=== PATIENT | female | born 1985 | race Caucasian/White ===

== ENCOUNTER 2016-08-27 06:41 | Emergency (ER) | payer MEDICAID ==
[~2016-08-27] VITALS: Ht 160 cm; Wt 68.0 kg
[~2016-08-27 06:41] MED LIST: ACET1TAB40 PO; ACET500C5 PO; BACTDS PO; BUTA1CAP38 PO; CEPH-443 PO; D-ME118S6 PO; FIORICET PO; HYDR-3498 PO; IBUP-1542 PO; IBUP800T25 PO; MECL25TA2 PO
[2016-08-27 06:44] VITALS: Ht 160 cm; Wt 68.0 kg
[2016-08-27] MEDS ORDERED: SOD CHLORIDE 0.9% 1,000 ML IV STA (07:33)
[2016-08-27 07:55] LABS: URINE BLOOD (Dip) POC Trace-intact (NEGATIVE)
[2016-08-27] MEDS ORDERED: DIPHENHYDRAMINE 50 MG INJ IV ONE (08:00)
[2016-08-27] MEDS ORDERED: METOCLOPRAMIDE 10 MG INJ IV ONE (08:00)
[2016-08-27 08:37] LABS: ADD SCAN DIFF NO
[2016-08-27 08:45] LABS: BASOPHIL # 0.1 10^3/ul (0.0-0.1); BASOPHILS % 0.5 % (0.0-2.0); EOSINOPHILS # 0.4 10^3/ul (0.0-0.5); EOSINOPHILS % 3.2 % (0.0-7.0); HEMATOCRIT 41.8 % (37.0-47.0); HEMOGLOBIN 13.2 g/dl (12.0-16.0); LYMPHOCYTES # 3.4 10^3/ul (0.8-2.9); LYMPHOCYTES % 26.5 % (15.0-51.0); MEAN CORPUSCULAR HEMOGLOBIN 28.9 pg (29.0-33.0); MEAN CORPUSCULAR HGB CONC 31.6 g/dl (32.0-37.0); MEAN CORPUSCULAR VOLUME 91.7 fl (82.0-101.0); MONOCYTE # 1.3 10^3/ul (0.3-0.9); MONOCYTES % 10.1 % (0.0-11.0); NEUTROPHIL # 7.6 10^3/ul (1.6-7.5); NEUTROPHILS % 59.4 % (39.0-77.0); PLATELET COUNT 467 10^3/UL (140-415); RED BLOOD COUNT 4.56 10^6/ul (4.20-5.40); RED CELL DISTRIBUTION WIDTH 15.1 % (11.5-14.5); WHITE BLOOD COUNT 12.7 10^3/ul (4.8-10.8)
[2016-08-27 08:56] LABS: ALBUMIN 4.2 g/dl (3.3-4.9)
[2016-08-27 08:59] LABS: ALBUMIN/GLOBULIN RATIO 1.35; BILIRUBIN,INDIRECT 0.1 mg/dl (0-1.1); BILIRUBIN,TOTAL 0.1 mg/dl (0.2-1.3); CREATININE 0.51 mg/dl (0.44-1.00); TOTAL PROTEIN 7.3 g/dl (6.1-8.1)
[2016-08-27 09:00] LABS: CALCIUM 9.1 mg/dl (8.4-10.2)
[2016-08-27] MEDS ORDERED: FIORICET PO (09:31)
[2016-08-27 09:39] VITALS: BP 117/72; PULSE 73; RESP 18; TEMP 97.8
--- NOTE | 2016-08-27 12:02 | ERD ---
ER Documentation Chief Complaint Date/Time DATE: 08/27/16 TIME: 11:55 Chief Complaint headcahe , vomiting x 3 months HPI 30-year-old female patient with a past medical history of a chronic headache presents to the ED complaining of the same kind of headache that she is experiencing since last year. Reports that she feels slightly dizzy. States that she has been vomiting intermittently for the last 3 months. States that loud noises makes her headache worse. States that she has not followed up with a neurologist. States that her last menses was on July 30, 2016. Denies any blurred vision, diplopia, photophobia, chest pain, shortness of breath, abdominal pain. Denies any head trauma or neck trauma. Denies any loss of consciousness. Denies any fever, neck stiffness, seizures. ROS All systems reviewed and are negative except as per history of present illness. Medications Home Meds Active Scripts Acetamin/Butalbital/Caffeine* (Fioricet*) [id number] Tab, 1 TAB PO Q6H Y for PAIN, #30 TAB Prov:LIZABETH GARCIA PA-C 08/27/16 Acetamin/Butalbital/Caffeine* (Fioricet*) [id number] Tab, 1 TAB PO Q6H Y for PAIN, #30 TAB Prov:LIZABETH GARCIA PA-C 04/13/16 Btfslwnupd-Akepechrjcore-Mdrorkzm* (Fioricet*) 50-300-40 Mg Capsule, 1 CAP PO Q4H, #30 CAP Prov:LIZABETH GARCIA PA-C 12/10/15 Ibuprofen* (Motrin*) 600 Mg Tab, 600 MG PO Q6, #30 TAB Prov:HEMANT ROMERO 10/03/15 Sulfamethoxazole-Trimethoprim* (Bactrim* DS) 800-160 Mg Tab, 1 TAB PO BID for 7 Days, TAB Prov:HEMANT ROMERO 10/03/15 Cephalexin* (Keflex*) 500 Mg Capsule, 500 MG PO QID for 7 Days, CAP Prov:HEMANT ROMERO 10/03/15 Meclizine Hcl* (Antivert*) 25 Mg Tablet, 25 MG PO Q6H Y for NAUSEA, #20 TAB Prov:GALINDO MIRANDA LOAN TELLER 07/06/15 Ibuprofen* (Motrin*) 800 Mg Tab, 800 MG PO Q6H Y for PAIN AND OR ELEVATED TEMP, #30 TAB Prov:GALINDO MIRANDA. LOAN TELLER 07/06/15 Dextromethorphan Hb-Promethazine Hcl (Promethazine DM Syrup) 180 Ml Syrup, 5 ML PO Q6 Y for COUGH for 5 Days, ML Prov:HEMANT ROMERO C 04/04/15 Ibuprofen* (Motrin*) 600 Mg Tab, 600 MG PO Q6, #30 TAB Prov:GARCIA ROMERONA C 04/04/15 Acetaminophen* (Tylophen*) 500 Mg Capsule, 1 CAP PO Q6H Y for PAIN AND OR ELEVATED TEMP, #20 CAP Prov:VLAD BEJARANO 01/31/15 Hydrocodone Bit-Acetaminophen* ([place]*) 5-325 Mg Tab, 1 TAB PO Q6 Y for PAIN, # 5 TAB Prov:VLAD BEJARANO 01/31/15 Reported Medications Acetaminophen-Codeine* (Acetaminophen-Cod #3*) 300-30 Mg Tab, 1 TAB PO Q6 Y for PAIN, TAB 03/17/14 Allergies Allergies: Coded Allergies: lactose (Verified Allergy, Unknown, 12/10/15) PMhx/Soc History of Surgery: Yes ( X3) Anesthesia Reaction: No Hx Neurological Disorder: No Hx Respiratory Disorders: No Hx Cardiac Disorders: No Hx Psychiatric Problems: No Hx Miscellaneous Medical Probl: No Hx Alcohol Use: No Hx Substance Use: No Hx Tobacco Use: No Smoking Status: Never smoker Physical Exam Vitals Vital Signs Date Time Temp Pulse Resp B/P Pulse Ox O2 Delivery O2 Flow Rate FiO2 08/27/16 09:39 97.8 73 18 117/72 99 Room Air Physical Exam Const: Roi-sqq-mmtwmzawj, well-nourished. In no acute distress. Head: Atraumatic, normocephalic Eyes: Normal Conjunctiva without injection. No purulent discharge. PERRLA. EOMI ENT: Normal external ear. Ear canal without erythema. Tympanic membrane pearly orosco without effusion or bulging. Nasal canal clear with normal turbinates. Moist oropharynx without tonsillar exudates. Non-erythematous pharynx. Uvula midline. No drooling. No trismus. Neck: No cervical midline tenderness. Full range of motion. No meningismus. No cervical lymphadenopathy. No JVD. Resp: Clear to auscultation bilaterally. No wheezing, rhonchi, rales, or crackles. No accessory muscle use. No retractions. Cardio: Regular rate and rhythm. No murmurs, rubs or gallops. Abd: Soft, non tender, non distended. Normal bowel sounds. No palpable masses. No rebound tenderness. No guarding. Negative McBurney's Point. Negative Thakkar's Sign. Skin: Normal skin turgor. No petechiae or rashes Back: No midline tenderness. No CVA tenderness. Ext: No cyanosis, or edema. Distal pulses intact bilaterally. Neur: Awake and alert. Normal gait. Normal coordination. Cranial Nerves II- VII intact. Normal finger to nose. Muscle strength 5/5. Sensation intact. Psych: Normal Mood and Affect Result Diagram: 08/27/16 0750 08/27/16 0750 Results 24 hrs Laboratory Tests Test 08/27/16 07:50 08/27/16 07:57 White Blood Count 12.710^3/ul Red Blood Count 4.5610^6/ul Hemoglobin 13.2g/dl Hematocrit 41.8% Mean Corpuscular Volume 91.7fl Mean Corpuscular Hemoglobin 28.9pg Mean Corpuscular Hemoglobin Concent 31.6g/dl Red Cell Distribution Width 15.1% Platelet Count 39202^3/UL Mean Platelet Volume 10.0fl Neutrophils % 59.4% Lymphocytes % 26.5% Monocytes % 10.1% Eosinophils % 3.2% Basophils % 0.5% Nucleated Red Blood Cells % 0.0/100WBC Neutrophils # 7.610^3/ul Lymphocytes # 3.410^3/ul Monocytes # 1.310^3/ul Eosinophils # 0.410^3/ul Basophils # 0.110^3/ul Nucleated Red Blood Cells # 0.010^3/ul Sodium Level 142mmol/L Potassium Level 4.0mmol/L Chloride Level 105mmol/L Carbon Dioxide Level 26mmol/L Anion Gap 15 Blood Urea Nitrogen 10mg/dl Creatinine 0.51mg/dl Glucose Level 97mg/dl Calcium Level 9.1mg/dl Total Bilirubin 0.1mg/dl Direct Bilirubin 0.00mg/dl Indirect Bilirubin 0.1mg/dl Aspartate Amino Transf (AST/SGOT) 20IU/L Alanine Aminotransferase (ALT/SGPT) 34IU/L Alkaline Phosphatase 63IU/L Total Protein 7.3g/dl Albumin 4.2g/dl Globulin 3.10g/dl Albumin/Globulin Ratio 1.35 Bedside Urine pH (LAB) 5.5 Bedside Urine Protein (LAB) Negative Bedside Urine Glucose (UA) Negative Bedside Urine Ketones (LAB) Negative Bedside Urine Blood Trace-intact Bedside Urine Nitrite (LAB) Negative Bedside Urine Leukocyte Esterase (L Negative Current Medications Medications (Trade) Dose Ordered Sig/Carol Route PRN Reason Start Time Stop Time Status Last Admin Dose Admin Sodium Chloride (NS) 1,000 ml @ 1,000 mls/hr Q1H STAT IV 08/27/16 07:33 08/27/16 08:32 DC 08/27/16 08:10 Metoclopramide HCl (Reglan) 10 mg ONCE ONCE IV 08/27/16 08:00 08/27/16 08:01 DC 08/27/16 08:11 Diphenhydramine HCl (Benadryl) 25 mg ONCE ONCE IV 08/27/16 08:00 08/27/16 08:01 DC 08/27/16 08:11 Procedures/MDM This is a 30-year-old female patient with a past medical history of chronic headache presents to the ED complaining of the same headache and vomiting that started adamantly 3 months ago. Patient reports at this time she feels dizzy. Therefore EKG was ordered to further evaluate patient. Patient was further worked up with CBC, CMP, lipase, UA, urine . Patient already had a CT done in November 2015 which was negative for any acute abnormalities. Patient's pain and symptoms have improved after treatment with 1 L normal saline, 10 mg IV Reglan, 25 mg IV Benadryl. CBC: No leukocytosis. No e/o of systemic infection. No e/o anemia. CMP: No e/o severe acidosis, alkalosis, renal failure, diabetic ketoacidosis, liver disease Lipase within normal limits. Urine: No leukocyte esterase, no nitrites, no hematuria. Urine : negative EKG reviewed and interpreted by Dr. Paz Rate/Rhythm: [71 bpm, Normal Sinus Rhythm] No ectopy, no ST elevations, normal axis. QRS, ST, T-waves: [No changes consistent w/ acute ischemia] Impression: [No evidence of ischemia or arrhythmia] Low suspicion for acute myocardial infarction, pneumothorax, pneumonia, cardiac tamponade, pulmonary embolism, AAA, aortic dissection, Boerhaave's syndrome, cardiac dysrhythmias,meningitis, intracranial bleed, seizure, stroke, TIA or other emergent conditions. Patient likely has migraine headaches. Low suspicion for intracranial bleed, subarachnoid hemorrhage, meningitis, TIA, stroke, seizures, subdural hematoma, meningitis, epidural hematoma, or other emergent conditions. Discharge medications: Fioricet Follow up with primary care physician in 1-2 days for referral to neurologist for a MRI. Instructed patient to return to the ED sooner for any worsening symptoms. Patient's questions were answered. Patient understood and agreed with discharge plan. Patient discharged stable. Departure Diagnosis: Primary Impression: Headache Headache type: unspecified Headache chronicity pattern: unspecified pattern Intractability: not intractable Qualified Code: R51 - Nonintractable headache, unspecified chronicity pattern, unspecified headache type Condition: Stable Patient Instructions: Headache, Unspecified Referrals: JHON OH MD,MATY CHAND,CABRERA BILL MD, MD,BRITTNEY MURO,CHARLETTE SOTO,ARTUR OLIVAS,JOSHUA MULTANI MD, WEI MRELASHVILI, DAVIT NAYYAR,BENNETT LARSON,CLAUDIA SANTORO M.D., DAVID SHETH, KEVIN N MD TILWALLI, SHILPA D VERPUKHOVSKIY, YURIY MD VESPA,ALETHA SMITH MD, MD,ANASTACIO Rosales MD [facility] YOU HAVE RECEIVED A MEDICAL SCREENING EXAM AND THE RESULTS INDICATE THAT YOU DO NOT HAVE A CONDITION THAT REQUIRES URGENT TREATMENT IN THE EMERGENCY DEPARTMENT. FURTHER EVALUATION AND TREATMENT OF YOUR CONDITION CAN WAIT UNTIL YOU ARE SEEN IN YOUR DOCTORS OFFICE WITHIN THE NEXT 1-2 DAYS. IT IS YOUR RESPONSIBILITY TO MAKE AN APPOINTMENT FOR FOLOW-UP CARE. IF YOU HAVE A PRIMARY DOCTOR --you should call your primary doctor and schedule an appointment IF YOU DO NOT HAVE A PRIMARY DOCTOR YOU CAN CALL OUR PHYSICIAN REFERRAL HOTLINE AT IF YOU CAN NOT AFFORD TO SEE A PHYSICIAN YOU CAN CHOSE FROM THE FOLLOWING [facility] [address] [facility] [address] [facility] [address] [facility] [address] [facility] [address] [facility]. [facility] [address] [facility]. [facility] YOU HAVE RECEIVED A MEDICAL SCREENING EXAM AND THE RESULTS INDICATE THAT YOU DO NOT HAVE A CONDITION THAT REQUIRES URGENT TREATMENT IN THE EMERGENCY DEPARTMENT. FURTHER EVALUATION AND TREATMENT OF YOUR CONDITION CAN WAIT UNTIL YOU ARE SEEN IN YOUR DOCTORS OFFICE WITHIN THE NEXT 1-2 DAYS. IT IS YOUR RESPONSIBILITY TO MAKE AN APPOINTMENT FOR FOLOW-UP CARE. IF YOU HAVE A PRIMARY DOCTOR --you should call your primary doctor and schedule and appointment IF YOU DO NOT HAVE A PRIMARY DOCTOR YOU CAN CALL OUR PHYSICIAN REFERRAL HOTLINE AT . IF YOU CAN NOT AFFORD TO SEE A PHYSICIAN YOU CAN CHOSE FROM THE FOLLOWING [facility]: [facility] [address] [place] [address] [facility] [address] [place], [place] [id number] [place] [address] [address] [place] [address] [facility] URGENT CARE/SPECIALTIES Additional Instructions: Llame al doctor MAANA y nichelle radha LOGAN PARA DENTRO DE 1-2 JOHNSON para radha referencia a un neurlogo.Dgale a la secretaria que nosotros le instruimos hacer esta logan.Avise o llame si hand condicin se empeora antes de la logan. Regresa aqui si peor o no mejor. LIZABETH GARCIA PA-C August 27, 2016 12:02 LIZABETH GARCIA PA-C August 27, 2016 12:02
== END 2016-08-27 10:05 | disposition home or self-care (01) ==
LOC: FTE 06:41
DX: R51 Headache (principal); R42 Dizziness and giddiness
CPT/HCPCS: 80053; 81003; 85025; 93005; J1200; J2765; J7030; 36415; 96374; 96375

== ENCOUNTER 2017-07-07 18:03 | Emergency (ER) | END 2017-07-08 01:50 | disposition home or self-care (01) ==

== ENCOUNTER 2017-10-07 18:01 | Emergency (ER) | END 2017-10-07 21:07 | disposition home or self-care (01) ==

== ENCOUNTER 2017-11-03 17:34 | Emergency (ER) | END 2017-11-03 19:50 | disposition home or self-care (01) ==

== ENCOUNTER 2018-06-03 09:52 | Emergency (ER) | payer MEDICAID ==
[~2018-06-03] VITALS: Ht 157.5 cm; Wt 64.2 kg
[~2018-06-03 09:52] MED LIST changes: +ACET325T33 PO; +FAMO-96 PO; -IBUP800T25 PO; +IBUP800T48 PO; +NAPR-985 PO; +OMEP40CA6 PO; +ONDA4TAB8 PO; +RANI150T35 PO
[2018-06-03 09:56] VITALS: BP 117/64; PULSE 82; RESP 18; Ht 157.5 cm; Wt 64.2 kg
[2018-06-03] MEDS ORDERED: IBUP-1542 PO (10:22)
[2018-06-03] MEDS ORDERED: D-ME473S2 PO (10:22)
--- NOTE | 2018-06-03 10:25 | ERD ---
ER Documentation Chief Complaint Chief Complaint cough/congestion x 1 week; ear pain HPI 32-year-old female presents with cough, congestion, sore throat, ear pain for last week. She is here with her child with similar symptoms. No history of measured fevers, chest pain, vomiting or abdominal pain, urinary complaints. ROS All systems reviewed and are negative except as per history of present illness. Medications Home Meds Active Scripts Dextromethorphan Hb-Promethazine Hcl* (Promethazine DM* Syrup) 473 Ml Syrup, 5 ML PO Q6 PRN for COUGH for 4 Days, ML Prov:BUDDY JERONIMO MD 06/03/18 Ibuprofen* (Motrin*) 600 Mg Tab, 600 MG PO Q6, #30 TAB Prov:BUDDY JERONIMO MD 06/03/18 Acetaminophen* (Tylenol*) 325 Mg Tablet, 2 TAB PO Q6 PRN for PAIN AND OR ELEVATED TEMP, #20 TAB Prov:CONNIE VERAS MD 11/03/17 Omeprazole* (Omeprazole*) 40 Mg Capsule.dr, 40 MG PO DAILY, #30 CAP Prov:CONNIE VERAS MD 11/03/17 Ranitidine Hcl* (Zantac*) 150 Mg Tablet, 150 MG PO BID PRN for EPIGASTRIC PAIN, #30 TAB Prov:CONNIE VERAS MD 11/03/17 Ondansetron Hcl* (Zofran*) 4 Mg Tablet, 4 MG PO Q6H for NAUSEA AND/OR VOMITING, #30 TAB Prov:HEMANT ROMERO 10/07/17 Famotidine* (Pepcid*) 20 Mg Tablet, 20 MG PO BID for 7 Days, TAB Prov:HEMANT ROMERO 10/07/17 Naproxen* (Naprosyn*) 500 Mg Tablet, 500 MG PO BID PRN for PAIN AND/OR INFLAMMATION, #20 TAB Prov:YUMIKO DUPONT PA-C 07/08/17 Acetamin/Butalbital/Caffeine* (Fioricet*) [id number] Tab, 1 TAB PO Q6H PRN for PAIN, #30 TAB Prov:LIZABETH GARCIA PA-C 08/27/16 Acetamin/Butalbital/Caffeine* (Fioricet*) [id number] Tab, 1 TAB PO Q6H PRN for PAIN, #30 TAB Prov:LIZABETH GARCIA PA-C 04/13/16 Rgqmwamaih-Qesoogyaqlara-Dvdkqvwo* (Fioricet*) 50-300-40 Mg Capsule, 1 CAP PO Q4H, #30 CAP Prov:LIZABETH GARCIA PA-C 12/10/15 Ibuprofen* (Motrin*) 600 Mg Tab, 600 MG PO Q6, #30 TAB Prov:HEMANT ROMERO 10/03/15 Sulfamethoxazole-Trimethoprim* (Bactrim* DS) 800-160 Mg Tab, 1 TAB PO BID for 7 Days, TAB Prov:HEMANT ROMERO 10/03/15 Cephalexin* (Keflex*) 500 Mg Capsule, 500 MG PO QID for 7 Days, CAP Prov:HEMANT ROMERO 10/03/15 Meclizine Hcl* (Antivert*) 25 Mg Tablet, 25 MG PO Q6H PRN for NAUSEA, #20 TAB Prov:GALINDO MIRANDA NP 07/06/15 Ibuprofen* (Motrin*) 800 Mg Tab, 800 MG PO Q6H PRN for PAIN AND OR ELEVATED TEMP, #30 TAB Prov:GALINDO MIRANDA ENGLISH AS A SECOND LANGUAGE TEACHER 07/06/15 Dextromethorphan Hb-Promethazine Hcl (Promethazine DM Syrup) 180 Ml Syrup, 5 ML PO Q6 PRN for COUGH for 5 Days, ML Prov:HEMANT ROMERO 04/04/15 Ibuprofen* (Motrin*) 600 Mg Tab, 600 MG PO Q6, #30 TAB Prov:HEMANT ROMERO 04/04/15 Acetaminophen* (Tylophen*) 500 Mg Capsule, 1 CAP PO Q6H PRN for PAIN AND OR ELEVATED TEMP, #20 CAP Prov:VLAD BEJARANO 01/31/15 Hydrocodone Bit-Acetaminophen* ([place]*) 5-325 Mg Tab, 1 TAB PO Q6 PRN for PAIN, #5 TAB Prov:VLAD BEJARANO 01/31/15 Reported Medications Acetaminophen-Codeine* (Acetaminophen-Cod #3*) 300-30 Mg Tab, 1 TAB PO Q6 PRN for PAIN, TAB 03/17/14 Allergies Allergies: Coded Allergies: lactose (Verified Allergy, Unknown, 12/10/15) PMhx/Soc History of Surgery: Yes ( X3) Anesthesia Reaction: No Hx Neurological Disorder: No Hx Respiratory Disorders: No Hx Cardiac Disorders: No Hx Psychiatric Problems: No Hx Miscellaneous Medical Probl: No Hx Alcohol Use: No Hx Substance Use: No Hx Tobacco Use: No Smoking Status: Never smoker FmHx Family History: No diabetes, No coronary disease, No other Physical Exam Vitals Vital Signs Date Temp Pulse Resp B/P (MAP) Pulse Ox O2 O2 Flow FiO2 Time Delivery Rate 06/03/18 98.4 82 18 117/64 98 09:56 (81) Physical Exam Const: No acute distress Head: Atraumatic Eyes: Normal Conjunctiva ENT: Normal External Ears, Nose and Mouth. TMs normal. Oropharynx normal. Neck: Full range of motion. No meningismus. Resp: Clear to auscultation bilaterally. No rales, wheezing or retractions. Cardio: Regular rate and rhythm, no murmurs Abd: Soft, non tender, non distended. Normal bowel sounds Skin: No petechiae or rashes Back: No midline or flank tenderness Ext: No cyanosis, or edema Neur: Awake and alert Psych: Normal Mood and Affect Departure Diagnosis: Primary Impression: Viral URI with cough Condition: Stable Patient Instructions: Uri, Viral, No Abx (Adult) Referrals: NO PRIMARY,CARE PHYSICIAN (PCP) Additional Instructions: Probablamente un virus que dura 2-4 moser. cheque otro vez en el proximo alexander para mas simptomas- vomito, dolor, bravo, problemas con respirando, o con hand doctor primario. BUDDY JERONIMO MD Jun 03, 2018 10:25
== END 2018-06-03 10:51 | disposition home or self-care (01) ==
LOC: FTE 09:52
DX: J06.9 Acute upper respiratory infection, unspecified (principal)
CPT/HCPCS: 99283

== ENCOUNTER 2018-06-18 10:14 | Emergency (ER) | payer MEDICAID ==
[~2018-06-18] VITALS: Ht 167.6 cm; Wt 63.0 kg
[~2018-06-18 10:14] MED LIST changes: +D-ME473S2 PO
[2018-06-18 10:24] VITALS: Ht 167.6 cm; Wt 63.0 kg
[2018-06-18] MEDS ORDERED: FAMO-96 PO (13:29)
[2018-06-18] MEDS ORDERED: HYDR-4011 PO (13:29)
--- NOTE | 2018-06-18 14:38 | ERD ---
ER Documentation Chief Complaint Chief Complaint Complains of abdominal pain since last night HPI 32-year-old female presenting with abdominal pain generalized times 3 days. She states the pain is constant and has not taken any medications. Denies fevers. Denies any chest pain or shortness of breath. Denies dysuria. Denies changes in bowel movement. Last bowel movement was yesterday. Has had a few episodes of vomiting. Denies allergies to medications. No medical problems. Surgical history denies. Up-to-date on vaccinations. Social history denies ROS All systems reviewed and are negative except as per history of present illness. Medications Home Meds Active Scripts Famotidine* (Pepcid*) 20 Mg Tablet, 20 MG PO BID for 4 Days, #30 TAB Prov:ANGELIKA VELA PA-C 06/18/18 Hydrocodone/Acetaminophen ([place] 5-325 Tablet) 1 Each Tablet, 1 TAB PO Q6H PRN for PAIN, #7 TAB Prov:ANGELIKA VELA PA-C 06/18/18 Dextromethorphan Hb-Promethazine Hcl* (Promethazine DM* Syrup) 473 Ml Syrup, 5 ML PO Q6 PRN for COUGH for 4 Days, ML Prov:BUDDY JERONIMO MD 06/03/18 Ibuprofen* (Motrin*) 600 Mg Tab, 600 MG PO Q6, #30 TAB Prov:BUDDY JERONIMO MD 06/03/18 Acetaminophen* (Tylenol*) 325 Mg Tablet, 2 TAB PO Q6 PRN for PAIN AND OR ELEVATED TEMP, #20 TAB Prov:CONNIE VERAS MD 11/03/17 Omeprazole* (Omeprazole*) 40 Mg Capsule.dr, 40 MG PO DAILY, #30 CAP Prov:CONNIE VERAS MD 11/03/17 Ranitidine Hcl* (Zantac*) 150 Mg Tablet, 150 MG PO BID PRN for EPIGASTRIC PAIN, #30 TAB Prov:CONNIE VERAS MD 11/03/17 Ondansetron Hcl* (Zofran*) 4 Mg Tablet, 4 MG PO Q6H for NAUSEA AND/OR VOMITING, #30 TAB Prov:HEMANT ROMERO 10/07/17 Famotidine* (Pepcid*) 20 Mg Tablet, 20 MG PO BID for 7 Days, TAB Prov:HEMANT ROMERO 10/07/17 Naproxen* (Naprosyn*) 500 Mg Tablet, 500 MG PO BID PRN for PAIN AND/OR INFLAMMATION, #20 TAB Prov:YUMIKO DUPONT PA-C 07/08/17 Acetamin/Butalbital/Caffeine* (Fioricet*) [id number] Tab, 1 TAB PO Q6H PRN for PAIN, #30 TAB Prov:LIZABETH GARCIA PA-C 08/27/16 Acetamin/Butalbital/Caffeine* (Fioricet*) [id number] Tab, 1 TAB PO Q6H PRN for PAIN, #30 TAB Prov:LIZABETH GARCIA PA-C 04/13/16 Icsgfmridi-Jrlwyfcelcjud-Ifbwvblr* (Fioricet*) 50-300-40 Mg Capsule, 1 CAP PO Q4H, #30 CAP Prov:LIZABETH GARCIA PA-C 12/10/15 Ibuprofen* (Motrin*) 600 Mg Tab, 600 MG PO Q6, #30 TAB Prov:HEMANT ROMERO 10/03/15 Sulfamethoxazole-Trimethoprim* (Bactrim* DS) 800-160 Mg Tab, 1 TAB PO BID for 7 Days, TAB Prov:HEMANT ROMERO 10/03/15 Cephalexin* (Keflex*) 500 Mg Capsule, 500 MG PO QID for 7 Days, CAP Prov:HEMANT ROMERO 10/03/15 Meclizine Hcl* (Antivert*) 25 Mg Tablet, 25 MG PO Q6H PRN for NAUSEA, #20 TAB Prov:GALINDO MIRANDA [employer] 07/06/15 Ibuprofen* (Motrin*) 800 Mg Tab, 800 MG PO Q6H PRN for PAIN AND OR ELEVATED TEMP, #30 TAB Prov:GALINDO MIRANDA [employer] 07/06/15 Dextromethorphan Hb-Promethazine Hcl (Promethazine DM Syrup) 180 Ml Syrup, 5 ML PO Q6 PRN for COUGH for 5 Days, ML Prov:HEMANT ROMERO 04/04/15 Ibuprofen* (Motrin*) 600 Mg Tab, 600 MG PO Q6, #30 TAB Prov:HEMANT ROMERO 04/04/15 Acetaminophen* (Tylophen*) 500 Mg Capsule, 1 CAP PO Q6H PRN for PAIN AND OR ELEVATED TEMP, #20 CAP Prov:VLAD BEJARANO 01/31/15 Hydrocodone Bit-Acetaminophen* ([place]*) 5-325 Mg Tab, 1 TAB PO Q6 PRN for PAIN, #5 TAB Prov:DAYDAY BEJARANOBIR 01/31/15 Reported Medications Acetaminophen-Codeine* (Acetaminophen-Cod #3*) 300-30 Mg Tab, 1 TAB PO Q6 PRN for PAIN, TAB 03/17/14 Allergies Allergies: Coded Allergies: lactose (Verified Allergy, Unknown, 12/10/15) PMhx/Soc History of Surgery: Yes ( X3) Anesthesia Reaction: No Hx Neurological Disorder: No Hx Respiratory Disorders: No Hx Cardiac Disorders: No Hx Psychiatric Problems: No Hx Miscellaneous Medical Probl: No Hx Alcohol Use: No Hx Substance Use: No Hx Tobacco Use: No Smoking Status: Never smoker FmHx Family History: No diabetes, No coronary disease, No other Physical Exam Vitals Vital Signs Date Temp Pulse Resp B/P (MAP) Pulse Ox O2 O2 Flow FiO2 Time Delivery Rate 06/18/18 99.0 92 20 123/82 98 10:24 (96) Physical Exam GENERAL: The patient is well-appearing, well-nourished, in no acute distress HEENT: Atraumatic. Conjunctivae are pink. Pupils equal, round, and reactive to light. There is no scleral icterus. Tympanic membranes clear bilaterally. Oropharynx clear. NECK: C-spine is soft and supple. There is no meningismus. There is no cervical lymphadenopathy. CHEST: Clear to auscultation bilaterally. There are no rales, wheezes or rhonchi. HEART: Regular rate and rhythm. No murmurs, clicks, rubs or gallops. ABDOMEN: Normal active bowel sounds. No distention. No organomegaly. Generalized tenderness to palpation. Result Diagram: 06/18/18 1205 06/18/18 1205 Results 24 hrs Laboratory Tests Test 06/18/18 12:05 06/18/18 12:17 White Blood Count 12.6 10^3/ul Red Blood Count 4.30 10^6/ul Hemoglobin 12.0 g/dl Hematocrit 37.0 % Mean Corpuscular Volume 86.0 fl Mean Corpuscular Hemoglobin 27.9 pg Mean Corpuscular Hemoglobin Concent 32.4 g/dl Red Cell Distribution Width 15.3 % Platelet Count 531 10^3/UL Mean Platelet Volume 8.7 fl Immature Granulocytes % 0.200 % Neutrophils % 57.5 % Lymphocytes % 31.9 % Monocytes % 8.0 % Eosinophils % 1.5 % Basophils % 0.9 % Nucleated Red Blood Cells % 0.0 /100WBC Immature Granulocytes # 0.030 10^3/ul Neutrophils # 7.3 10^3/ul Lymphocytes # 4.0 10^3/ul Monocytes # 1.0 10^3/ul Eosinophils # 0.2 10^3/ul Basophils # 0.1 10^3/ul Nucleated Red Blood Cells # 0.0 10^3/ul Urine Color YELLOW Urine Clarity SLIGHTLY CLOUDY Urine pH 7.0 Urine Specific [place] 1.015 Urine Ketones NEGATIVE mg/dL Urine Nitrite NEGATIVE mg/dL Urine Bilirubin NEGATIVE mg/dL Urine Urobilinogen NEGATIVE mg/dL Urine Leukocyte Esterase NEGATIVE Jasmin/ul Urine Microscopic RBC 7 /HPF Urine Microscopic WBC 2 /HPF Urine Squamous Epithelial Cells FEW /HPF Urine Amorphous Crystals FEW /HPF Urine Mucus FEW /HPF Urine Hemoglobin NEGATIVE mg/dL Urine Glucose NEGATIVE mg/dL Urine Total Protein NEGATIVE mg/dl Sodium Level 141 mmol/L Potassium Level 3.4 mmol/L Chloride Level 104 mmol/L Carbon Dioxide Level 28 mmol/L Anion Gap 9 Blood Urea Nitrogen 6 mg/dl Creatinine 0.41 mg/dl Est Glomerular Filtrat Rate mL/min > 60 mL/min Glucose Level 96 mg/dl Calcium Level 9.3 mg/dl Total Bilirubin 0.2 mg/dl Direct Bilirubin 0.00 mg/dl Indirect Bilirubin 0.2 mg/dl Aspartate Amino Transf (AST/SGOT) 25 IU/L Alanine Aminotransferase (ALT/SGPT) 20 IU/L Alkaline Phosphatase 79 IU/L Total Protein 7.4 g/dl Albumin 4.1 g/dl Globulin 3.30 g/dl Albumin/Globulin Ratio 1.24 Lipase 75 U/L POC Beta HCG, Qualitative NEGATIVE Procedures/MDM DIAGNOSTIC IMAGING REPORT Patient: ZAHRAA AKBAR : 1985 Age: 32 Sex: F MR #: [id number] DOS: 06/18/18 1156 Ordering MD: NADIA VELA PA-C Location: [facility] Room/Bed: PROCEDURE: US Abdomen. CLINICAL INDICATION: abdominal pain TECHNIQUE: Multiple real-time images were acquired of the patient's right upper quadrant abdomen and retroperitoneum utilizing a high resolution transducer. COMPARISON: US ABDOMEN 10/07/2017 FINDINGS: The liver demonstrates increased echogenicity. The liver is normal in size and no focal solid lesions are seen. The liver measures 12.4 cm in length. The portal vein is patent with normal direction of flow. No intrahepatic biliary dilatation is seen. No gallstones are identified within the gallbladder. There is no pericholecystic fluid or gallbladder wall thickening. The common bile duct measures 4.5 mm in maximal dimension. The visualized portions of the pancreas are unremarkable. The tail of the pancreas is not seen. No free fluid is identified. The right kidney is normal in size, and demonstrate normal echogenicity and cortical thickness. The right kidney measures 9.5 cm in long dimension. There is no evidence of hydronephrosis. There are no kidney stones. RPTAT: AA IMPRESSION: Fatty liver. No evidence of gallstones DIAGNOSTIC IMAGING REPORT Patient: ZAHRAA AKBAR : 1985 Age: 32 Sex: F MR #: [id number] DOS: 06/18/18 1156 Ordering MD: NADIA VELA PA-C Location: [facility] Room/Bed: PROCEDURE: US Pelvis. CLINICAL INDICATION: pelvic pain TECHNIQUE: Multiple sonographic images of the pelvis were obtained utilizing transabdominal technique. The images were reviewed on a PACS workstation. COMPARISON: US PELVIS 07/07/2017 FINDINGS: The uterus is normal in size with a normal appearance of the myometrium. The uterus measures 9.1 x 3.9 x 5.4 cm. The endometrial stripe is homogeneous in appearance and has the thickness of 8 mm. The ovaries are normal in size and echogenicity. Normal Doppler flow is identified in both ovaries. The right ovary measures 2.7 x 2.8 x 2.3 cm. There is a 1.8 cm simple cyst. The left ovary measures 2.1 of 0.9 x 2.2 cm. No free fluid is present within the pelvis. RPTAT: AA IMPRESSION: Small simple cyst in the right ovary. Otherwise unremarkable. MDM: 32-year-old female presenting with generalized abdominal pain. Patient's abdominal pain does appear to be isolated to the epigastric and pelvic region. Patient's ultrasound and blood work are within normal limits. I have low suspicion for cardiac or pulmonary emergencies. I have low suspicion for acute abdominal emergency and I do not feel CT scan is indicated as patient's exam is non-concerning. Patient blood work is stable and there is no signs of infection in urine. Vitals are stable. Patient is discharged with supportive medications and discharged stricter precautions. Patient is told symptoms change or worsen to return immediately to the ER. All questions answered at discharge Departure Diagnosis: Primary Impression: Ovarian cyst Additional Impression: Abdominal pain Condition: Stable Patient Instructions: Abdominal Pain, Ovarian Cyst Referrals: [facility] YOU HAVE RECEIVED A MEDICAL SCREENING EXAM AND THE RESULTS INDICATE THAT YOU DO NOT HAVE A CONDITION THAT REQUIRES URGENT TREATMENT IN THE EMERGENCY DEPARTMENT. FURTHER EVALUATION AND TREATMENT OF YOUR CONDITION CAN WAIT UNTIL YOU ARE SEEN IN YOUR DOCTORS OFFICE WITHIN THE NEXT 1-2 DAYS. IT IS YOUR RESPONSIBILITY TO MAKE AN APPOINTMENT FOR FOLOW-UP CARE. IF YOU HAVE A PRIMARY DOCTOR --you should call your primary doctor and schedule an appointment IF YOU DO NOT HAVE A PRIMARY DOCTOR YOU CAN CALL OUR PHYSICIAN REFERRAL HOTLINE AT IF YOU CAN NOT AFFORD TO SEE A PHYSICIAN YOU CAN CHOSE FROM THE FOLLOWING [facility] CL[facility]ICS [facility] [address] [facility]. [facility] [address] [facility] [facility] [address] [facility] [facility] [address] [facility]. [facility] [address] [facility]. [facility]. [address] Additional Instructions: FOLLOW UP WITH YOUR PRIMARY CARE PHYSICIAN TOMORROW.Return to this facility if you are not improving as expected. ANGELIKA VELA PA-C Jun 18, 2018 14:38
== END 2018-06-18 13:47 | disposition home or self-care (01) ==
LOC: FTE 10:14
DX: N83.291 Other ovarian cyst, right side (principal); R10.2 Pelvic and perineal pain
CPT/HCPCS: 36415; 76705; 76856; 80053; 81001; 81025; 83690; 85025; Z7502; 81003

== ENCOUNTER 2018-11-29 18:04 | Emergency (ER) | payer MEDICAID ==
[~2018-11-29] VITALS: Ht 152.4 cm; Wt 65.6 kg
[~2018-11-29 18:04] MED LIST changes: +HYDR-4011 PO
[2018-11-29 18:14] VITALS: BP 140/85; PULSE 80; RESP 16; Ht 152.4 cm; Wt 65.6 kg
== END 2018-11-29 19:35 | disposition home or self-care (01) ==
LOC: FTE 18:04
DX: M79.604 Pain in right leg (principal); M79.605 Pain in left leg
CPT/HCPCS: 81025; Z7502; Z7610; 99282